=== PATIENT | male | born 1960 | race Caucasian/White ===

== ENCOUNTER 2024-08-14 05:49 | Day surgery (SDC) | payer BC, SELFPAY ==
[2024-08-14] VITALS (8 sets, daily range): BP systolic 114–155; BP diastolic 78–92; PULSE 56–72; RESP 16–18; TEMP 36.1–36.6; O2SAT 98–99; BMI 32.3
--- NOTE | 2024-08-14 07:08 | PCM.PRE.AN2 ---
ASA Classification* ASA Classification ASA Classification: 1 Assessment & Plan Anesthesia* Anesthesia Assessment Anesthesia Assessment: Discussed sedation and/or anesthesia options, risks, benefits, and alternatives with patient/parents/legal guardian/POA. Questions invited. The patient/parents/legal guardian/POA seems to understand and agrees to proceed with anesthesia plan. Reviewed the physical assessment, medical history, allergy history and patient home medications list prior to surgery/procedure/anesthetic and documented any changes. Performed airway and anesthesia risk assessments. Anesthesia Type Anesthesia Type: MAC History Source History Obtained from:: Patient and Chart Anesthesia Focused Assessment* Temperature: 97 F Pulse Rate: 56 Blood Pressure: 114/79 Respiratory Rate: 16 Pulse Ox: 98 Oxygen Delivery Method: Room Air Airway Assessment Mouth opens: >3 cm Mallampati Score: II Teeth Condition: Upper (Tooth #11 is an implant. 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 When Was Last Pacemaker Check QUESTION #4 FULL TEXT: You/Your Family Experience fever (hyperthermia) with Anesthesia Last Oral Intake Last Oral intake: Last Oral Intake NPO since 22:00 08/14/24 06:32 Meds taken in AM with sips of No 08/14/24 06:32 water? Meds patient instructed to take am of surgery PONV PONV - sheet rock installer: PONV - sheet rock installer Female No 08/08/24 15:53 HX of Motion Sickness No 08/08/24 15:53 HX of N/V After Surgery No 08/08/24 15:53 Non-Smoker Yes 08/08/24 15:53 Duration of Surgery greater No 08/08/24 15:53 than 60 minutes Number of Risk Factors 1 08/08/24 15:53 PONV Score Low Risk 08/08/24 15:53 Height & Weight Height & Weight: Anesthesia: Height & Weight Height 5 ft 11 in 08/14/24 06:32 Weight: 105 kg 08/14/24 06:32 Body Mass Index (BMI) 32.3 08/14/24 06:32 Respiratory Assessment Respiratory Assessment - sheet rock installer: Respiratory Tract Infection Hx - sheet rock installer Hx Respiratory Tract Infection No 08/08/24 15:53 STOP Sleep Apnea STOP Sleep Apnea - sheet rock installer: STOP Sleep Apnea - sheet rock installer Hx Hypertension No 08/08/24 15:53 Hx Sleep Apnea No 08/08/24 15:53 CPAP BIPAP Do you snore loudly (louder Yes 08/08/24 15:53 than talking or can be heard Do you often feel tired/ No 08/08/24 15:53 fatigued/ sleepy during daytime? Has anyone observed you stop No 08/08/24 15:53 breathing during sleep? STOP Results Negative 08/08/24 15:53 QUESTION #5 FULL TEXT : Do you snore loudly (louder than talking or can be heard through closed doors)? Tobacco Use History Tobacco Use History - sheet rock installer: Tobacco Use History - sheet rock installer Tobacco Use Smoking Status Never smoker 08/08/24 15:53 Hx Tobacco Use No 08/08/24 15:53 Years Smoking Packs Smoked per Day Smoking Cessation Date was within the last 15 years Hx Smoking Cessation Date Hx Smoking Cessation Counseling Hematologic Medial History Hematologic Hx - sheet rock installer: Hematologic Medical Hx - range management specialist Hx of Blood Transfusion No 08/08/24 15:53 Hx of Transfusion in last 3 No 08/08/24 15:53 Months Date of Last Transfusion (if within last 3 months) Ever experience any problems No 08/08/24 15:53 with transfusion(s)? Specify any problems Hx of Preganancy in last 3 N/A 08/08/24 15:53 Months Nurse Filling Out Transfusion DSCHRIBER 08/08/24 15:53 & Questions: Date: 08/08/24 08/08/24 15:53 Time: 15:55 08/08/24 15:53 Patient unable to answer at this time (ie. confused, unrespo /Reproduction History /Reproductive History - sheet rock installer: /Reproductive Hx- sheet rock installer Hx Now No 08/08/24 15:53 Gestational Age (in weeks): EDC: Hx Hx Para Hx Section SAB No 08/08/24 15:53 PFSH Medical History Wears glasses Cancer Non-smoker Home Medications ?Medication ?Instructions ?Recorded ?Last Taken ?Type NK 08/06/24 Unknown History Allergy/AdvReac Type Severity Reaction Status Date / Time No Known Allergies Allergy Verified 08/14/24 06:30 Surgical History History of dental surgery Hx of thumb surgery Social History Smoking Status: Never smoker Review of Systems (Anesthesia) ROS Narrative System reviewed and no additional complaints, except as documented.
--- NOTE | 2024-08-14 07:30 | LES_PTH ---
PATIENT: RAINER [place] [facility] [id number] AGE/SX: 63/M ROOM: RE08/14/[address]: Dr. Prashant Diaz MD : 1960 BED: DIS: 08/14/2024 SPEC #: [id number] RECD: 08/14/24 11:34 STATUS: POLO VALARIE #: [id number] LAURENT: 08/14/24 07:[address]: Prashant Diaz DEPT: SURGICAL PATHOLOGY RECD BY: Keshav Sherman ENTERED: 08/14/24 11:35 SP TYPE: Lesion OTHR DR: No Primary Care Phys Tissues: A - Skin of back, NOS Procedures: Surgery Specimen Level IV HEADER OPERATION: Excision left upper back melanoma in situ PRE-OP DIAGNOSIS: Melanoma in situ left upper back TISSUE SUBMITTED: A- Melanoma in situ left upper back *short stitch- superior, long stitch- lateral* MICROSCOPIC DIAGNOSIS A. Skin, left upper back, wide excision: * Focal atypical junctional melanocytic proliferation, consistent with residual malignant melanoma in situ, approaching the medial surgical margin (0.3 cm) - see note. * Surgical margins free (minimum 0.3 cm to medial margin). * Scar and associated reactive changes consistent with a previous surgical procedure. * Focal acantholytic dyskeratosis (incidental). Note: A prior pathology report is not available. MICROSCOPIC DESCRIPTION Slides are reviewed. GROSS DESCRIPTION A. Received in formalin in a container labeled with the patient's name, date of , and melanoma in situ LT upper back is an oriented and ovoid skin excision with a short stitch indicating superior margin and long stitch indicating lateral margin. The specimen is 2.6 cm from superior to inferior, 3.4 cm from medial to lateral, with a depth up to 1.7 cm. The white-machado epidermis exhibits an ill-defined, pink and roughened patch.Patch measurement: 0.9 x 0.8 cm. It is situated to the margins as follows:Superior: 1.0 cmInferior: 1.0 cmLateral: 1.1 cmMedial: 1.3 cm The superior half is inked black, and the inferior half is inked green. The specimen is serially sectioned from medial to lateral into 9 slices to reveal that the lesion is within slices 4-7. The epidermal patch exhibits machado-pink cut surfaces that appear confined to the epidermis. The underlying fatty tissue exhibits scattered hemorrhage but is otherwise unremarkable. The specimen is entirely and sequentially submitted from medial to lateral in A1-9 (1 slice per cassette; medial margin in A1 = perpendicular, lateral margin in A9 = perpendicular). [facility] 08/14/2024 CPT:91580
--- NOTE | 2024-08-14 07:38 | PCM.HP.STD ---
HPI - General HPI Narrative RAINER BAINS, is a 63 M who presents with a left upper back melanoma in situ biopsied by Dr. Mt Stone in June 2024 which came back as melanoma in situ went to go maligna subtype. He was referred to my office. We discussed wide local excision and he agreed to proceed PFSH Medical History Wears glasses Cancer Non-smoker Home Medications ?Medication ?Instructions ?Recorded ?Last Taken ?Type NK 08/06/24 Unknown History Allergy/AdvReac Type Severity Reaction Status Date / Time No Known Allergies Allergy Verified 08/14/24 06:30 Surgical History History of dental surgery Hx of thumb surgery Social History Smoking Status: Never smoker Vital Signs Vital Signs Vital Signs: 08/14/24 06:32 08/14/24 06:32 08/14/24 07:18 Temperature 97 F L 97 F L Temperature Source Temporal Pulse Rate 56 L 56 L Respiratory Rate 16 16 Respiratory Pattern Normal Blood Pressure 114/79 114/79 Blood Pressure Mean 90 Blood Pressure Source Monitor Blood Pressure Position Semi-Fowlers Blood Pressure Location Right Arm Pulse Ox 98 98 Oxygen Delivery Method Room Air Room Air Weight Weight: 231 lb 7.766 oz Body Mass Index (BMI) 32.3 Physical Exam Narrative 1x1cm shave site (melanoma in situ) at the left upper back over trapezium. No surrounding induration. No axillary or neck lymphadenopathy. Assessment & Plan Assessment/Plan (1) Melanoma in situ of back: PLAN: Plan I talked to the patient extensively about the risks of surgery, including bleeding, infection, damage to surrounding structures, poor scaring, surgical site dehiscence and wound formation, need for wound care, need for repeat operations (positive margins),the depth and width of excision, failure to obtain the desired result and the risks of anesthesia. The benefits and alternatives of this surgery were also discussed. All of their questions were answered, and they agreed to proceed with surgery. Plan for excision with 1 cm margins around the melanoma in situ, lentigo maligna type (greater margins because of the subtype) of the left upper back. CPT codes for insurance prior authorization are as follows: [id number], [id number] INTERVAL H&P PLAN, DATE OF SURGERY: We will proceed with surgery today.
[2024-08-14] MEDS: Cefazolin 2 GM in Syringe IV (07:51)
[2024-08-14] MEDS: Lidocaine 1% /Epi 1:100 (20ml) 20 ML Vial (08:07)
[2024-08-14] MEDS: Bupiv/Epi 0.25% 30 ML Vial (08:07)
--- NOTE | 2024-08-14 08:52 | PCM.POST.ANE ---
Anesthesia: Postop Eval I Current Vital Signs Temperature: 97.8 F Pulse Rate: 60 Blood Pressure: 124/78 Respiratory Rate: 18 Pulse Ox: 98 Oxygen Delivery Method: Room Air Assessment Airway patent: Yes Spontaneous unlabored respirations: Yes Mental status: Awake nausea: No Vomiting: No Anesthesia Complication: No Fluid Hydration Crystalloid volume administer (ml): 5 Total IV fluid infused: 5 Progress Note Anesthesia document: Postop Eval 1 completed: Yes
--- NOTE | 2024-08-14 08:55 | OP.PCM_ITS ---
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, 1 cm margins for total excision of 3 x 3.7 cm (CPT 99289) 2) complex closure left upper back wound, 5.5 cm (CPT 73501) washing machine loader: No Type of Anesthesia: Local MAC (25 cc of 50-50 mixture of 1% lidocaine with 1- 200,000 epinephrine and quarter percent Marcaine with 1-200,000 epinephrine) RN Documented Start/Stop Times: Operation Date: 08/14/24 07:30 Case Time Into Pre-Op 08/14/24 05:59 Out of Pre-Op 08/14/24 07:39 Anesthesia Start 08/14/24 07:41 Into Room 08/14/24 07:41 Procedure Start 08/14/24 08:07 Procedure End 08/14/24 08:32 Anesthesia End 08/14/24 08:35 Out of Room 08/14/24 08:35 Into Recovery 08/14/24 08:37 Into Phase II Recovery 08/14/24 08:52 Out of Recovery 08/14/24 08:52 Procedure Start Time: 08:07 Procedure Stop Time: 08:32 Select all DRAINS/GRAFTS/IMPLANTS that apply: None Estimated Blood Loss: 5 cc Specimen collected: Yes Description of specimen(s) removed: Melanoma in situ with 1 cm margins, marked short superior, long lateral with marking stitch Description of surgery: Indications: Jon Minor is a delightful 63-year-old male with a 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 Given that this subtype is lentigo maligna, recommended margins are 9 mm. I discussed with him the risks of the tumor being an invasive melanoma on final path report, in which case definitive management may be 10mm margins and therefore we elected to proceed with 10 mm margins. I talked to him about the risks, benefits, and alternatives of this procedure and he elected to proceed. Procedure details: Patient was correctly identified in preoperative holding and I marked the melanoma in situ with the patient and his in agreement with the marking. He was taken back to the operating room where he was administered sedation and local anesthesia as noted above. He was prepped and draped in sterile fashion and all proper timeouts were performed. A 15 blade scalpel was used to excise around the melanoma in situ with 1 cm margins and the specimen was excised down to the fascia of the underlying muscle. The specimen was sent with a short superior, long lateral silk marking stitch. The wound was irrigated with copious zaheer normal saline and hemostasis obtained with Bovie electrocautery. The malignant lesion excision was 3 x 3.7 cm (including 1 cm circumferential margins in the measurement). There was significant tension along the 5.5 cm wound. Therefore 3 cm of undermining was performed along the superficial surface of the underlying fascia superiorly and inferiorly with Bovie electrocautery to release tension. The wound was then closed in layers using 2-0 PDS deep fascial sutures, 3-0 Monocryl deep dermal sutures, and 3-0 Monocryl running subcuticular followed by Prineo tape for complex closure of 5.5 cm (complex secondary to wide undermining of a total of 6 cm). Patient was taken to the PACU in stable condition and tolerated the procedure well. Postoperative plan: Follow-up in 1 week for wound check and to discuss pathology report. Surgical Findings: Able to excise and close primarily Complications Complications: No
--- NOTE | 2024-08-14 08:56 | POSTOPAN2_ITS ---
Anesthesia Postop Eval I Sum Postop Eval Completion status Anesthesia document: Postop Eval 1 completed: Yes Anesthesia Postop Eval I Summary Anesthesia Postop Eval I Summary: Anesthesia Postop Eval I: Assessment Summary Airway patent Yes 08/14/24 08:53 LEAD JAVA DEVELOPER ARCHITECT.ACAR Spontaneous unlabored Yes 08/14/24 08:53 LEAD JAVA DEVELOPER ARCHITECT.ACAR respirations Mental status Awake 08/14/24 08:53 LEAD JAVA DEVELOPER ARCHITECT.ACAR nausea No 08/14/24 08:53 LEAD JAVA DEVELOPER ARCHITECT.ACAR Vomiting No 08/14/24 08:53 LEAD JAVA DEVELOPER ARCHITECT.ACAR Anesthesia Postop Eval I: Fluid Summary Crystalloid volume administer 5 08/14/24 08:53 LEAD JAVA DEVELOPER ARCHITECT.ACAR (ml) Colloids volume administered ( ml) Blood Product volume administered (ml) Total IV fluid infused 5 08/14/24 08:53 LEAD JAVA DEVELOPER ARCHITECT.ACAR Anesthesia Postop Eval I: Summary Notes Anesthesia Complication No 08/14/24 08:53 LEAD JAVA DEVELOPER ARCHITECT.ACAR Anesthesia Complication Comment: Post-operative progress note Anesthesia: Postop Eval II Evaluation Mental status: Awake and Calm Pain Level: 1 nausea: No Vomiting: No Complications Anesthesia Complication: No
--- NOTE | 2024-08-14 08:56 | PCM.POSTANE2 ---
Anesthesia Postop Eval I Sum Postop Eval Completion status Anesthesia document: Postop Eval 1 completed: Yes Anesthesia Postop Eval I Summary Anesthesia Postop Eval I Summary: Anesthesia Postop Eval I: Assessment Summary Airway patent Yes 08/14/24 08:53 SUPERVISOR STAVE FINISHING.ACAR Spontaneous unlabored Yes 08/14/24 08:53 SUPERVISOR STAVE FINISHING.ACAR respirations Mental status Awake 08/14/24 08:53 SUPERVISOR STAVE FINISHING.ACAR nausea No 08/14/24 08:53 SUPERVISOR STAVE FINISHING.ACAR Vomiting No 08/14/24 08:53 SUPERVISOR STAVE FINISHING.ACAR Anesthesia Postop Eval I: Fluid Summary Crystalloid volume administer 5 08/14/24 08:53 SUPERVISOR STAVE FINISHING.ACAR (ml) Colloids volume administered ( ml) Blood Product volume administered (ml) Total IV fluid infused 5 08/14/24 08:53 SUPERVISOR STAVE FINISHING.ACAR Anesthesia Postop Eval I: Summary Notes Anesthesia Complication No 08/14/24 08:53 SUPERVISOR STAVE FINISHING.ACAR Anesthesia Complication Comment: Post-operative progress note Anesthesia: Postop Eval II Evaluation Mental status: Awake and Calm Pain Level: 1 nausea: No Vomiting: No Complications Anesthesia Complication: No
== END 2024-08-14 09:21 | disposition home or self-care (01) ==
LOC: SDC 05:50 → AC 05:53
PROVIDERS: Referring Provider Surgery Plastic and Reconstructive Surgery; Visit Provider Surgery Plastic and Reconstructive Surgery
PROC: (CPT 11604; principal; 2024-08-14 07:20)
DX: D03.59 Melanoma in situ of other part of trunk (principal)
CPT/HCPCS: 11604; 13101; 00300; 88305; A4216; J2405